=== PATIENT | female | born 1955 | race Caucasian/White ===

== ENCOUNTER 2024-08-21 22:23 | Emergency (ER) | payer MEDICARE, OTHER, SELFPAY ==
[2024-08-21 22:29] VITALS: BP 179/102
[2024-08-21 22:47] LABS: % Basophils 0.5 % (0-2); % Eosinophils 1.9 % (0-6); % Immature Granulocytes 0.2 % (0-0.5); % Lymphocytes 25.4 % (20.5-51.1); % Monocytes 9.1 % (1.7-9.3); % Neutrophils 62.9 % (42.2-75.2); Absolute Eosinophils 0.2 10^3/uL (0-0.7); Absolute Lymphocytes 2.2 10^3/uL (1.2-3.4); Absolute Monocytes 0.8 10^3/uL (0.1-0.6); Absolute Neutrophils 5.3 10^3/uL (1.4-6.5); Hematocrit 37.3 % (37.0-47.0); Hemoglobin 12.7 g/dL (12.0-16.0); Mean Corpuscular Hgb 30.5 pg (27.0-31.0); Mean Corpuscular Volume 89.4 fL (81.0-99.0); Mean Platelet Volume 10.4 fL (7.4-10.4); Nucleated Red Blood Cells % 0 %; Platelet Count 196 10^3/uL (130-400); Red Blood Cell Count 4.17 10^6/uL (4.20-5.40); Red Cell Dist. Width 12.4 % (11.5-14.5); White Blood Cell Count 8.5 10^3/uL (4.8-10.8)
[2024-08-21 23:11] LABS: ALT (SGPT) 13 U/L (0-35); AST (SGOT) 19 U/L (14-36); Albumin 4.4 g/dl (3.5-5.0); Alkaline Phosphatase 93 U/L (38-126); Blood Urea Nitrogen 21 mg/dl (7-17); Calcium 9.6 mg/dl (8.4-10.2); Carbon Dioxide 31 mmol/L (22-30); Chloride 105 mmol/L (98-107); Glucose 121 mg/dl (70-99); Potassium 3.6 mmol/L (3.5-5.1); Sodium 140 mmol/L (135-145); Total Bilirubin 0.2 mg/dl (0.2-1.3); Total Protein 7.5 g/dl (6.3-8.2); eGFR > 60.00
[2024-08-21 23:39] VITALS: BP 199/87
[2024-08-21 23:42] VITALS: BMI 29.2
[2024-08-22] VITALS: BP 186/91
[2024-08-22] MEDS: COMPAZINE 10 MG PO (00:54)
[2024-08-22] MEDS: TYLENOL 1000 MG PO (00:54)
--- NOTE | 2024-08-22 00:56 | ED.GENMED ---
History of Present Illness
General
Chief Complaint: Blood Pressure Problem
Source: patient
Exam Limitations: none
Time Seen by Provider: 08/22/24 00:33
Nursing documentation reviewed up to this point in time: agreed with
History of Present Illness
History of Present Illness:
This is a 69-year-old woman with history of hypertension that began 2019. Following with her PCP, currently maintained on valsartan 160 mg. She admits that blood pressure has been chronically poorly controlled with systolic above 200, diastolic
above 100. More recently, was started on hydrochlorothiazide 12.5 mg perhaps within the past 2 weeks and 2 days ago was recommended to increase hydrochlorothiazide to 25 mg and to increase valsartan to 320 mg.
She complains of overall not feeling well, generalized fatigue and has had a generalized headache for the past 5 days.
No weakness nor numbness, no difficulty with ambulation, no fever no chills, no chest pain or palpitations. She denies vision difficulty. She does admit to mild nausea today but has had no vomiting. No change in weight, no leg pain or swelling.
She did take 1 Advil earlier today without relief of headache. Prior to this she has not been taking anything for headache.
She was concerned for kidney function abnormality with initiation of diuretic. No prior history of renal insufficiency.
She takes no other medicines besides valsartan and hydrochlorothiazide.
Past History
Past History
ED Past Medical History: HTN and Psychiatric (Anxiety)
ED Past Surgical History: Orthopedic (Left hip replacement)
Social History
Tobacco: Non-smoker
Alcohol: None
Drug: None
Living: with family
Employment: Retired
Family History
Family History: Other (Noncontributory)
Phy Exam
Physical Exam
Physical Exam:
GENERAL: 69-year-old woman appears her stated age, awake and alert, pleasant, appears in no acute distress. Daughter is accompanying. Current blood pressure 186/91.
EYE: pupils equal and reactive. anicteric
NECK: Supple, nontender, no meningismus, no significant adenopathy.
ENT: posterior pharynx is clear, oral mucosa is moist. TM clear b/l, moderately boggy pale blue turbinates
CARDIAC: Regular rate and rhythm. no murmur.
LUNGS: Clear breath sounds bilaterally, no acute respiratory distress, no wheezes/rales/rhonchi
ABDOMEN: Soft, nondistended, without focal tenderness, normoactive BS.
NEUROLOGICAL: Alert and oriented x3, no focal neuro deficits. Gait is doll and steady.
SKIN: Warm and dry, normal color, skin intact. No rash.
MUSCULOSKELETAL: No C/C/E. peripheral pulses are full and equal b/l. No palpable tenderness.
PSYCH: Normal and appropriate interaction.
Course
Orders/Labs/Results
Orders:
Orders
08/21/24 22:41
Complete Blood Count/With Diff Urgent
Comprehensive Metabolic Panel Urgent
08/22/24 00:47
Acetaminophen [Tylenol] 1,000 mg PO NOW STA
Prochlorperazine [Compazine] 10 mg PO NOW STA
08/22/24 00:48
Electrocardiogram (*1) Urgent
Reason for Study: Hypertension, Benign
CT Head W/o Iv Contrast Urgent
Comment:
Reason For Exam: headache x 5 days, HTN
EKG- Treatment ONCE
Abnormal Lab Results
08/21/24
22:41
RBC 4.17 L 10^6/uL
(4.20-5.40)
Absolute Monos (auto) 0.8 H 10^3/uL
(0.1-0.6)
Carbon Dioxide 31 H mmol/L
(22-30)
BUN 21 H mg/dl
(7-17)
Glucose 121 H mg/dl
(70-99)
08/21/24 22:41
08/21/24 22:41
Vital Signs
Initial and Last Documented VS:
Initial Vital Signs
Temp Pulse Resp BP Pulse Ox
98.3 F 68 20 179/102 96
08/21/24 22:29 08/21/24 22:29 08/21/24 22:29 08/21/24 22:29 08/21/24 22:29
Last Documented Vital Signs
Temp Pulse Resp BP Pulse Ox
98.3 F 66 17 174/80 95
08/21/24 22:29 08/22/24 01:00 08/22/24 01:00 08/22/24 01:00 08/22/24 01:00
MDM/Problems Addressed
Differential Diagnosis Includes:
Patient presents with chronically, poorly controlled hypertension.
Presents with acute headache that began 5 days ago, concern for intracerebral bleeding thus will check CT of the head.
Recent addition of hydrochlorothiazide thus concern for acute kidney injury, electrolyte abnormality.
Overall well in appearance. No focal neurodeficits. Denies chest pain nor palpitations. Due to significantly elevated hypertension will check EKG.
Monitor shows normal sinus rhythm in the 60s.
She is noted to have moderate allergic rhinitis on exam and this could certainly be attributing to her headache.
Other consideration is hypertension related headache.
Will trial an oral dose of Tylenol and Compazine.
MDM/Problems Addressed:
Hypertension
Acute headache
Chronic conditions affecting care: HTN
Acute Exacerbation and/or Progression of Chronic Illness: HTN
*Radiology
Radiology exam reviewed: radiology read reviewed (CT of the head is unremarkable)
*Pulse Oximetry
Patient hypoxic: no
*EKG
Interpreted by ED Provider?: Yes
Interpretation: normal
Comparison EKG: no comparison EKG present
Rate: normal
Rhythm: sinus
Berkley: normal axis
Interval: normal interval
QRS Pattern: normal QRS
Ischemia: no ischemia
*Soda Column Operator Interpretation
Rate: normal
Interpretation: normal
Rhythm: sinus
*Critical Care Note
Total Time (30-74mins, 75-104mins- exclusive of procedures): Not Applicable
Update Note
Update Note:
02:00
Patient reports moderate improvement in headache. No further nausea.
She has got herself dressed, seated at the end of the stretcher, eager to be discharged to home.
CT of the head is unremarkable.
Blood pressure is improved 174/80.
Recommend she continue valsartan 320 mg daily. Can continue hydrochlorothiazide if she wants to continue 12.5 mg a day is fine.
Recommend she continue to monitor her blood pressure at home but only once daily, record results and then put that cuff away until the following day.
Prompt follow-up with PCP for recheck.
ED Attending Note
-
Portions of this chart may have been created with voice recognition software.� Occasional wrong word or��sound alike� substitutions may have occurred due to the inherent limitations of voice recognition software.
Discharge Plan
Departure
Patient Disposition: Home (Routine Discharge)
Date of Disposition: 08/22/24
Time of Disposition: 02:05
Patient with high blood pressure during this ER visit?: No
Condition: Good
Discharge Problem:
Accelerated hypertension, Acute tension-type headache
Instructions: High Blood Pressure (DC), Headaches in adults
Referrals:
Sidney Huerta MD [Family Provider, Internal Medicine] - Call in 1-3 days for appt
Interventions
Interventions:
*Risk Screen - Suicide Last Done: 08/21/24 22:29
*General Assessment Last Done: 08/21/24 22:29
*Neglect/Abuse Screening Last Done: 08/21/24 22:29
ED- Cardiac Assessment Last Done: 08/21/24 23:42
ED- Neurological Assessment Last Done: 08/21/24 23:42
ED- Pulmonary Assessment Last Done: 08/21/24 23:42
Discharge Date and Time
Print Language: MALAYSIAN
[2024-08-22 01:00] VITALS: BP 174/80
== END 2024-08-22 02:16 | disposition home or self-care (01) ==
LOC: EMR 22:23
PROVIDERS: Emergency Medicine; EMERGENCY PHYSICIAN Emergency Medicine; FAMILY PHYSICIAN Internal Medicine
DX: G44.209 Tension-type headache, unspecified, not intractable (principal); I10 Essential (primary) hypertension; Z79.899 Other long term (current) drug therapy
CPT/HCPCS: 99284; 70450; 80053; 85025; 93005